=== PATIENT | male | born 1965 | race Two or more races ===

== ENCOUNTER 2018-11-15 11:42 | Emergency (ER) | payer MEDICAID ==
[~2018-11-15] VITALS: Ht 165.1 cm; Wt 73.0 kg
[2018-11-15 12:24] VITALS: BP 147/106
[2018-11-15] MEDS ORDERED: HYDROcodone/APAP 5/325 TABLET ONE (12:43)
[2018-11-15] MEDS ORDERED: HYDROcodone/APAP 5/325 TABLET PO ONE (13:00)
--- NOTE | 2018-11-15 13:32 | NUR ---
Patient/Caregiver given discharge instructions and they have confirmed that they understand the instructions. Patient ambulatory with steady gait.
== END 2018-11-15 13:33 | disposition home or self-care (01) ==
LOC: ED 13:00
DX: K08.89 Other specified disorders of teeth and supporting structures (principal); K02.9 Dental caries, unspecified
CPT/HCPCS: 99283

== ENCOUNTER 2019-07-19 11:10 | Emergency (ER) | payer MEDICAID ==
[~2019-07-19] VITALS: Ht 167.6 cm; Wt 69.6 kg
--- NOTE | 2019-07-19 11:35 | NUR ---
PT TO ED FOR "BRONCHITIS" (COUGH WITH YELLOW PHLEGM) X3 DAYS AND LEFT HIP PAIN X WEEKS. PT REPORTS PREVIOUD MD STATED HE NEEDS A REPLACEMENT. PT CONNECTED TO ALL MONITORS. VSS. DR. HILL TO BS FOR ASSESSMENT. AWAITING ORDERS.
[2019-07-19] MEDS ORDERED: IBUPROFEN 600 MG TABLET ONE (11:54)
[2019-07-19 11:58] VITALS: BP 122/82
--- NOTE | 2019-07-19 11:58 | NUR ---
PT MEDICATED PER MAR. VSS. NO NEEDS EXPRESSED. PT TO XR AT THIS TIME.
[2019-07-19] MEDS ORDERED: IBUPROFEN 200 MG TABLET PO ONE (12:00)
== END 2019-07-19 13:10 | disposition home or self-care (01) ==
LOC: ED 12:55
DX: J20.8 Acute bronchitis due to other specified organisms (principal); B34.9 Viral infection, unspecified
CPT/HCPCS: 71046; 99283

== ENCOUNTER 2020-05-13 06:29 | Emergency (ER) | payer MEDICAID ==
[~2020-05-13] VITALS: Ht 167.6 cm; Wt 71.1 kg
--- NOTE | 2020-05-13 06:44 | NUR ---
pt reports coming in ED today after a GLF on , states he hit face on the right side near cheek bone on a curb, states left ear started bleeding and now he cant hear out of either ear. Pt reports LOC, says "friend says i was out for like 7-8 seconds". Denies N/V, reports chronic neck pain from surgical hx. WCTM pt placed on spo2/bp/ecg monitoring. Jina BRANDON at bs for eval and poc.
--- NOTE | 2020-05-13 06:58 | NUR ---
BEDSIDE REPORT TO MARLA SCHULER, PT CARE TRANSFERRED AT THIS TIME.
--- NOTE | 2020-05-13 07:03 | NUR ---
REPORT RECEIVED FROM NELL SCHULER.
--- NOTE | 2020-05-13 07:04 | NUR ---
PT TO CT AT THIS TIME.
--- NOTE | 2020-05-13 07:17 | NUR ---
PT BACK TO ROOM FROM CT AT THIS TIME.
--- NOTE | 2020-05-13 08:02 | NUR ---
pt to ct at this time.
--- NOTE | 2020-05-13 08:25 | NUR ---
pt back to room from ct. pt's aox4. resps even and unlabored.
[2020-05-13 08:37] VITALS: BP 155/95
--- NOTE | 2020-05-13 09:18 | NUR ---
pt resting in [facility]. pt's aox4. resps even and unlabored. bp/spo2 monitors in place. call light within reach.
--- NOTE | 2020-05-13 09:33 | NUR ---
Patient given discharge instructions and they have confirmed that they understand the instructions. Patient ambulatory with steady gait.
== END 2020-05-13 09:34 | disposition home or self-care (01) ==
LOC: ED 08:59
DX: S02.19XA Other fracture of base of skull, initial encounter for closed fracture (principal); S09.90XA Unspecified injury of head, initial encounter; Z88.0 Allergy status to penicillin; W10.1XXA Fall (on)(from) sidewalk curb, initial encounter; Y93.89 Activity, other specified; Y92.830 Public park as the place of occurrence of the external cause; Y99.8 Other external cause status
CPT/HCPCS: 70450; 70480; 99285